=== PATIENT | female | born 1965 | race Caucasian/White ===

== ENCOUNTER 2021-02-10 06:12 | Day surgery (SDC) | payer OTHER ==
[2021-01-31 17:24] VITALS: BMI 42.4
[2021-02-10] MEDS ORDERED: PROPOFOL 20 ML ONE ×2 (07:11)
[2021-02-10] MEDS ORDERED: LIDOCAINE HCL 1%, 10 MG/ML (20ML VIAL) ONE (07:14)
[2021-02-10] MEDS ORDERED: MIDAZOLAM HCL 2 MG/2 ML SINGLE DOSE VIAL ONE (07:27)
[2021-02-10] MEDS ORDERED: SUCCINYLCHOLINE CHLORIDE 200 MG/10 ML SYRINGE ONE (07:29)
[2021-02-10] MEDS ORDERED: PHENYLEPHRINE HCL 10 MG/1 ML SINGLE DOSE VIAL ONE (07:52)
[2021-02-10] MEDS ORDERED: oxyCODONE HCL 5 MG TABLET PO ONE (08:34)
[2021-02-10 08:35] VITALS: TEMP 97.5
[2021-02-10 09:02] VITALS: BP 129/74; PULSE 85
[2021-02-10] MEDS ORDERED: ceFAZolin SODIUM 1 GM VIAL ONE (09:02)
[2021-02-10] MEDS ORDERED: LIDOCAINE HCL/PF 2% SDV 5ML VIAL ONE (09:02)
== END 2021-02-10 09:50 | disposition home or self-care (01) ==
LOC: FASU 06:12
PROVIDERS: ATTEND Orthopaedic Surgery
PROC: 0JNR3ZZ Release Left Foot Subcutaneous Tissue and Fascia, Percutaneous Approach (ICD-10-PCS; principal; 2021-02-10 08:05)
DX: M72.2 Plantar fascial fibromatosis (principal)